=== PATIENT | male | born 1960 | race Caucasian/White ===

== ENCOUNTER → 2018-07-19 | Day surgery (SDC) | payer BC ==
[~2018-07-19] VITALS: Ht 190.5 cm; Wt 93.0 kg
[~2018-07-19] MED LIST: ASPIRIN81 M1 PO; LIPITOR80 MG PO; LISINOPRIL2.5 MG PO; LOPRESSOR25 MG PO; PLAIN NIACIN250 MG PO
--- NOTE | ~2018-07-19 | PROC NOTE ---
[place], [place] PROCEDURE NOTE NAME: TEODORO IBARRA Migdalia UNIT #: [id number] ROOM: DOCTOR: RUBIN JAUREGUI MD BIRTHDATE: [birth year] DOS: 07/19/2018 PREOPERATIVE DIAGNOSIS: Screening examination. POSTOPERATIVE DIAGNOSIS: Rectal polyps x 2 (15 cm, 20 cm from the anal verge). PROCEDURE: Colonoscopy with polypectomy x 2. ENDOSCOPIST: Rubin Jauregui MD CONFECTIONERY MAKER: MOHAN. ANESTHESIA: MAC. INDICATIONS: This is a 58-year-old gentleman here for a screening examination. The procedure and its complications were explained to the patient in detail preoperatively. Complications that were discussed included but were not limited to, bleeding, colon perforation and missed lesions. He agreed to proceed. DESCRIPTION OF PROCEDURE: After identifying the patient, the patient was brought to the operating suite and laid in the left lateral position. After IV sedation was administered by the anesthesia team, a digital rectal exam was performed. Prior to this, a timeout procedure was performed as well. The digital rectal exam was normal. An adult colonoscope was now introduced into the anal canal and advanced sequentially into the rectum, sigmoid colon, descending colon, transverse colon and ascending colon up to the cecum. Upon reaching the cecum, the scope was withdrawn. Total withdrawal time was approximately 8 minutes. There were no obvious lesions seen in the entirety of the colon except at approximately 15 and 20 cm from the anal verge where two small polyps were encountered. These were removed with the help of biopsy forceps and sent for histopathological diagnosis. After hemostasis was confirmed, the scope was withdrawn and the patient was brought back to the recovery room in stable fashion. Based on this finding, the patient is recommended to have another colonoscopy in 3-5 years or sooner if new symptoms appear. These recommendations were discussed with the patient's in the recovery room. [place], [place] PROCEDURE NOTE NAME: TEODORO IBARRA UNIT #: [id number] ROOM: DOCTOR: RUBIN JAUREGUI MD BIRTHDATE: [birth year] Rubin Jauregui MD CM:PROCNOTE:PROCEDURE NOTE [id number] RUBIN JAUREGUI MD
[2018-07-19 11:30] VITALS: BP 130/76
[2018-07-19 12:07] VITALS: BP 104/69
[2018-07-19 12:22] VITALS: BP 124/79
[2018-07-19 12:37] VITALS: BP 122/75
== END | disposition home or self-care (01) ==
LOC: SDC 07-18 09:30
DX: Z12.11 Encounter for screening for malignant neoplasm of colon (principal); K62.1 Rectal polyp; I10 Essential (primary) hypertension; I25.10 Atherosclerotic heart disease of native coronary artery without angina pectoris; E78.5 Hyperlipidemia, unspecified; I25.2 Old myocardial infarction; F17.210 Nicotine dependence, cigarettes, uncomplicated; Z98.890 Other specified postprocedural states; Z79.899 Other long term (current) drug therapy; Z79.82 Long term (current) use of aspirin

== ENCOUNTER → 2019-01-02 | Outpatient (CLI) | payer BC ==
[2019-01-02 08:54] LABS: BASO # 0.1 10*3/uL (0.0-0.1); BASO % 0.8 % (0.0-1.0); EOS # 0.2 10*3/uL (0.0-0.4); EOS % 3.4 % (1.0-4.0); HEMATOCRIT 47.1 % (42.0-52.0); HEMOGLOBIN 15.5 g/dl (14.0-18.0); LYMPH # 2.4 10*3/uL (1.3-4.4); LYMPH % 40.7 % (27.0-41.0); MEAN CELL VOLUME 98.5 fl (80.0-94.0); MEAN CORPUSCULAR HGB 32.4 pg (27.0-31.0); MEAN CORPUSCULAR HGB CONC 32.9 g/dl (33.0-37.0); MEAN PLATELET VOLUME 12.5 fl (9.6-12.3); MONO # 0.7 10*3/uL (0.1-1.0); NEUT # 2.6 10*3/uL (2.3-7.9); NEUT % 43.8 % (47.0-73.0); PLATELET COUNT AUTOMATED 137 10*3/uL (130-400); RED BLOOD COUNT 4.78 10*6/uL (4.50-5.90); RED CELL DISTRI WIDTH 13.6 % (0-14.5); WHITE BLOOD COUNT 5.9 10*3/uL (4.8-10.8)
[2019-01-02 10:00] LABS: PTH INTACT 53.5 pg/mL (18.5-88.0)
== END | disposition home or self-care (01) ==
LOC: LAB 08:17
PROVIDERS: Nurse Practitioner Family
DX: E78.2 Mixed hyperlipidemia (principal); F17.210 Nicotine dependence, cigarettes, uncomplicated; I10 Essential (primary) hypertension; E83.51 Hypocalcemia

== ENCOUNTER → 2023-11-06 | Outpatient (CLI) | payer BC ==
[2023-11-06 08:26] LABS: BASO # 0.1 10*3/uL (0.0-0.1); BASO % 0.8 % (0.0-1.0); EOS # 0.2 10*3/uL (0.0-0.4); EOS % 1.9 % (1.0-4.0); HEMATOCRIT 46.7 % (42.0-52.0); LYMPH # 1.7 10*3/uL (1.3-4.4); LYMPH % 18.7 % (27.0-41.0); MEAN CELL VOLUME 97.1 fl (80.0-94.0); MEAN PLATELET VOLUME 12.3 fl (9.6-12.3); MONO # 0.8 10*3/uL (0.1-1.0); MONO % 9.1 % (3.0-9.0); NEUT # 6.2 10*3/uL (2.3-7.9); NEUT % 69.3 % (47.0-73.0); PLATELET COUNT AUTOMATED 154 10*3/uL (130-400); RED BLOOD COUNT 4.81 10*6/uL (4.50-5.90); WHITE BLOOD COUNT 8.9 10*3/uL (4.8-10.8)
[2023-11-06 09:12] LABS: ALKALINE PHOSPHATASE 76 U/L (46-116); BUN 15 mg/dl (9-23); CHLORIDE 110 mmol/L (98-107); CHOLESTEROL 111 mg/dL (<200); LDL CHOLESTEROL 39 mg/dL (9-159); SGPT/ALT 15 U/L (5-49); TOTAL PROTEIN 7.3 gm/dL (6.0-8.0); TRIGLYCERIDES 199 mg/dl (<150)
== END | disposition home or self-care (01) ==
LOC: LAB 07:33
PROVIDERS: ATTEND Nurse Practitioner Family
DX: Z12.5 Encounter for screening for malignant neoplasm of prostate (principal); I10 Essential (primary) hypertension; E78.2 Mixed hyperlipidemia; I25.10 Atherosclerotic heart disease of native coronary artery without angina pectoris; F17.210 Nicotine dependence, cigarettes, uncomplicated